=== PATIENT | male | born 1940 | race Caucasian/White ===

== ENCOUNTER 2017-01-26 07:35 | Inpatient (IN) | payer OTHER ==
[2017-01-19 09:41] LABS: ASCORBIC ACID (UR NOT ORDER) 40 (NEG); BILIRUBIN, URINE NEGATIVE (NEG); KETONE, URINE NEGATIVE (NEG); LEUKOCYTE ESTERASE(NOT OR NEG (NEG); WBC (NOT ORDERED) (RFLEX) < 1 (0-5)
[2017-01-19 09:42] LABS: BASOPHILS 0.5 %; BASOPHILS ABSOLUTE 0.03 10/3/uL (0.0-0.16); EOSINOPHILS 5.3 %; EOSINOPHILS ABSOLUTE 0.32 10/3/uL (0.0-0.53); HEMATOCRIT 38.4 % (40.0-51.0); HEMOGLOBIN 12.3 g/dL (13.6-17.8); IMMATURE GRANULOCYTES 0.2 %; IMMATURE GRANULOCYTES ABSOLUTE 0.01 10/3/uL (0.0-0.11); LYMPHOCYTES 9.8 %; LYMPHOCYTES ABSOLUTE 0.59 10/3/uL (0.67-4.30); MEAN CORPUSCULAR HEMOGLOB 28.1 pg (26.0-34.0); MEAN CORPUSCULAR VOLUME 87.9 fL (80-100); MEAN PLATELET VOLUME 10.2 fL (9.2-13.0); MONOCYTES 12.8 %; MONOCYTES ABSOLUTE 0.77 10/3/uL (0.21-1.20); NEUTROPHILS 71.4 %; NEUTROPHILS ABSOLUTE 4.29 10/3/uL (2.02-8.40); PLATELET COUNT 211 10/3/uL (150-400); RBC DISTRIBUTION WIDTH 14.1 % (12.0-16.0); RED CELL COUNT 4.37 10/6/uL (4.7-6.1)
[2017-01-19 09:43] LABS: MANUAL DIFF NO %
[2017-01-19 09:50] LABS: PROTIME (NOT ORD) 13.5 SEC (12.0-14.5)
[2017-01-19 10:13] LABS: ALBUMIN 3.8 G/DL (3.5-5.0); ALKALINE PHOSPHATASE 107 U/L (45-117); BUN (BLOOD UREA NITROGEN) 19 MG/DL (6-23); CALCIUM, SERUM 8.9 MG/DL (8.5-10.4); CHLORIDE, SERUM 104 MMOL/L (96-112); CO2 (CARBON DIOXIDE) 28 MMOL/L (24-34); CREATININE 0.96 MG/DL (0.70-1.30); GFR AFRICAN AMERICAN 88 ML/MIN (>=60); GFR NON AFRICAN AMERICAN 76 ML/MIN (>=60); GLOBULIN 3.9 G/DL (2.5-4.1); GLUCOSE, SERUM 91 MG/DL (60-99); POTASSIUM, SERUM 4.5 MMOL/L (3.5-5.3); SGOT(AST) 11 U/L (5-40); SGPT(ALT) 16 U/L (5-65); SODIUM, SERUM 140 MMOL/L (135-148); TOTAL BILIRUBIN 0.4 MG/DL (0-1.2); TOTAL PROTEIN 7.7 G/DL (6.0-8.5)
--- NOTE | ~2017-01-26 | OP ---
Record Of Operation [facility] [address] [place]. [address] NAME: ASH BLUM : 38 STATUS : ADM IN PAT#: [id number] AGE: 76 ADM/REG DATE : 01/26/17 MR#: [id number] REPORT SERV DATE: 01/27/17 DICTATED BY: BRIANDA PALAFOX JR. DATE: 01/26/17 REPORT STATUS : Draft TRANSCRIBED BY: MODL DATE: 01/26/17 DATE OF PROCEDURE: 01/26/2017 PREOPERATIVE DIAGNOSES: Left lower lobe adenocarcinoma, mesenteric abdominal low-grade follicular lymphoma, COPD, benign prostatic hypertrophy, diabetes mellitus type 2 non- insulin-dependent, hypertension, and large hiatal hernia with gastroesophageal reflux disease. POSTOPERATIVE DIAGNOSES: Left lower lobe adenocarcinoma, mesenteric abdominal low-grade follicular lymphoma, COPD, benign prostatic hypertrophy, diabetes mellitus type 2 non- insulin-dependent, hypertension, and large hiatal hernia with gastroesophageal reflux disease. NAME OF OPERATION: Bronchoscopy, left thoracoscopy with left lower lobectomy, complete mediastinal node dissection, richard stations 6, 7, 9, 11L; and intercostal nerve block. SURGEON: Brianda Palafox M.D. RESIDENT SURGEON: Dr. Aryan Lepe. NEWSPERSON: Roberto Espinoza. ANESTHESIA: General, [facility]. FINDINGS: The patient was noted to have significant mucous secretions airway which required a therapeutic bronchoscopy. There was no endobronchial lesions contraindication to proceeding on with surgery. There was a large tumor within the left lower lobe. It was not invading the parietal pleura. It was involving the visceral pleural surface. There was a large hiatal hernia. Gross inspection of the lower lobe showed our margins to be widely free. Nodes were sent separately. There was good reexpansion of the left upper lobe. DETAILS OF OPERATION: After adequate general anesthesia, the patient was intubated. A bronchoscopy was performed with significant mucous secretions from the airway. Left-sided double-lumen endotracheal tube was then placed. The patient was then positioned in the right lateral decubitus position. The left chest was prepped and draped in a routine sterile fashion. A small incision was made overlying the lower intercostal space. A separate anterior trocar incision was also made. Through these two incision sites, the above findings were noted. There was no indication that this was an unresectable tumor. The inferior pulmonary ligament was then taken down. The inferior pulmonary vein and superior pulmonary veins were identified and the inferior vein was transected with a vascular stapler. The bronchus was divided with a BONNY stapler. The fissure and pulmonary artery divided with multiple firings of BONNY stapler with tissue reinforcements. The lung was removed through the anterior trocar site and with the protected specimen bag. A 32- [place] chest tube was placed. The lung was reinflated. An intercostal nerve block had been performed. The chest was then thoroughly irrigated with sterile water. Adequate hemostasis was obtained. Trocar sites were closed with running Vicryl sutures. The skin was closed Record Of Operation [facility] [address] [place] [place]. [address] NAME: ASH BLUM : 38 STATUS : ADM IN PAT#: [id number] AGE: 76 ADM/REG DATE : 01/26/17 MR#: [id number] REPORT SERV DATE: 01/27/17 DICTATED BY: BRIANDA PALAFOX JR. DATE: 01/26/17 REPORT STATUS : Draft TRANSCRIBED BY: PEBBLES DATE: 01/26/17 with running monofilament suture. A Dermabond dressing was applied and the procedure was terminated at this point. The patient tolerated the procedure well and taken back to the recovery room in stable condition. SAJI/PEBBLES Brianda Palafox Jr., M.D. / [id number] CC: Taras Gentile Jr., M.D. Terry Jones, MD
[~2017-01-26 07:35] MED LIST: ADVAIR250 INH; ASA5GR PO; BYSTOLIC2.5 MG PO; CARDU2 PO; CRESTOR20 MG PO; EXFORGE1 TA3 PO; FISH OIL1200 MG PO; HYZAAR 50/12.51 TAB PO; K-TABS10 MEQ PO; MAGNESIUM PO; MOVE FREE ULTR1 EAC1 PO; NORV25 PO; PRAVACHOL40 MG PO; PRILO PO; PROAIR HFA INH; PROBIOTIC; SPIRIVA; TEKTURNA HCT1 TA3 PO; VITAMIN B-121000 MC1 SL; VITAMIN D31000 UNIT PO; VITC500 PO
[2017-01-26 14:10] LABS: BASOPHILS 0.1 %; BASOPHILS ABSOLUTE 0.01 10/3/uL (0.0-0.16); EOSINOPHILS 0.7 %; EOSINOPHILS ABSOLUTE 0.07 10/3/uL (0.0-0.53); HEMOGLOBIN 11.1 g/dL (13.6-17.8); IMMATURE GRANULOCYTES 0.2 %; IMMATURE GRANULOCYTES ABSOLUTE 0.02 10/3/uL (0.0-0.11); LYMPHOCYTES 3.1 %; LYMPHOCYTES ABSOLUTE 0.31 10/3/uL (0.67-4.30); MEAN CORPUS HGB CONC 32.4 g/dL (32.0-36.0); MEAN CORPUSCULAR HEMOGLOB 28.4 pg (26.0-34.0); MEAN CORPUSCULAR VOLUME 87.7 fL (80-100); MONOCYTES 3.4 %; MONOCYTES ABSOLUTE 0.34 10/3/uL (0.21-1.20); NEUTROPHILS 92.5 %; NEUTROPHILS ABSOLUTE 9.38 10/3/uL (2.02-8.40); PLATELET COUNT 194 10/3/uL (150-400); RBC DISTRIBUTION WIDTH 14.2 % (12.0-16.0); RED CELL COUNT 3.91 10/6/uL (4.7-6.1)
[2017-01-26 14:11] LABS: HEMATOCRIT 34.3 % (40.0-51.0); MANUAL DIFF NO %; WHITE BLOOD CELLS 10.1 10/3/uL (4.5-10.5)
[2017-01-26 14:24] LABS: CHLORIDE, SERUM 107 MMOL/L (96-112); CO2 (CARBON DIOXIDE) 27 MMOL/L (24-34); CREATININE 0.75 MG/DL (0.70-1.30); GFR AFRICAN AMERICAN 103 ML/MIN (>=60); GFR NON AFRICAN AMERICAN 88 ML/MIN (>=60); POTASSIUM, SERUM 4.1 MMOL/L (3.5-5.3); SODIUM, SERUM 143 MMOL/L (135-148)
[2017-01-26 14:26] LABS: BUN (BLOOD UREA NITROGEN) 13 MG/DL (6-23); CALCIUM, SERUM 7.8 MG/DL (8.5-10.4); GLUCOSE, SERUM 132 MG/DL (60-99)
[2017-01-27 06:32] LABS: BUN (BLOOD UREA NITROGEN) 10 MG/DL (6-23); CALCIUM, SERUM 8.3 MG/DL (8.5-10.4); CHLORIDE, SERUM 105 MMOL/L (96-112); CO2 (CARBON DIOXIDE) 27 MMOL/L (24-34); CREATININE 0.89 MG/DL (0.70-1.30); GFR AFRICAN AMERICAN 96 ML/MIN (>=60); GFR NON AFRICAN AMERICAN 82 ML/MIN (>=60); GLUCOSE, SERUM 167 MG/DL (60-99); POTASSIUM, SERUM 4.8 MMOL/L (3.5-5.3); SODIUM, SERUM 143 MMOL/L (135-148)
[2017-01-27 06:39] LABS: BASOPHILS 0 %; EOSINOPHILS 0 %; HEMOGLOBIN 11.2 g/dL (13.6-17.8); IMMATURE GRANULOCYTES 0.1 %; IMMATURE GRANULOCYTES ABSOLUTE 0.01 10/3/uL (0.0-0.11); LYMPHOCYTES 3.5 %; MEAN CORPUS HGB CONC 32.9 g/dL (32.0-36.0); MEAN CORPUSCULAR HEMOGLOB 29.2 pg (26.0-34.0); MEAN CORPUSCULAR VOLUME 88.8 fL (80-100); MEAN PLATELET VOLUME 10.4 fL (9.2-13.0); MONOCYTES 4.7 %; MONOCYTES ABSOLUTE 0.54 10/3/uL (0.21-1.20); NEUTROPHILS 91.7 %; NEUTROPHILS ABSOLUTE 10.62 10/3/uL (2.02-8.40); PLATELET COUNT 215 10/3/uL (150-400); RBC DISTRIBUTION WIDTH 14.2 % (12.0-16.0); RED CELL COUNT 3.83 10/6/uL (4.7-6.1); WHITE BLOOD CELLS 11.6 10/3/uL (4.5-10.5)
[2017-01-27 06:40] LABS: MANUAL DIFF NO %
[2017-01-27] MEDS ORDERED: PCET PO (13:07)
== END 2017-01-27 15:18 | disposition home or self-care (01) | DRG 165 ==
LOC: SDC/OF 07:35 → PACU 13:37 → 5NO 15:49
PROVIDERS: Thoracic Surgery (Cardiothoracic Vascular Surgery)
PROC: 0BTJ4ZZ Resection of Left Lower Lung Lobe, Percutaneous Endoscopic Approach (ICD-10-PCS; principal; 2017-01-26 09:45)
PROC: 07B70ZZ Excision of Thorax Lymphatic, Open Approach (ICD-10-PCS; 2017-01-26 09:45)
PROC: 3E0T3BZ Introduction of Anesthetic Agent into Peripheral Nerves and Plexi, Percutaneous Approach (ICD-10-PCS; 2017-01-26 09:45)
DX: C34.32 Malignant neoplasm of lower lobe, left bronchus or lung (principal); J44.9 Chronic obstructive pulmonary disease, unspecified; E11.9 Type 2 diabetes mellitus without complications; K21.9 Gastro-esophageal reflux disease without esophagitis; K44.9 Diaphragmatic hernia without obstruction or gangrene; I10 Essential (primary) hypertension; N40.0 Benign prostatic hyperplasia without lower urinary tract symptoms; E78.2 Mixed hyperlipidemia; Z95.5 Presence of coronary angioplasty implant and graft; Z87.891 Personal history of nicotine dependence
CPT/HCPCS: 36415; 71010; 71020; 80048; 80053; 81001; 82962; 83036; 85025; 85610; 86850; 86900; 86901; 87641; 88305; 88307; 88309; 88313; 93005; 94640; A9270-GY; J0690; J2250; J2370; J2405; J2710; J2795; J3010